=== PATIENT | female | born 1960 | race Caucasian/White ===

== ENCOUNTER 2017-08-23 13:46 | Emergency (ER) | payer OTHER ==
[~2017-08-23] VITALS: Ht 162.6 cm; Wt 69.8 kg
[~2017-08-23 13:46] MED LIST: Cleocin HCl300 MG PO; DOCU100 PO; Esgic Tablet1 EACH PO; Excedrin Extra1 EACH PO; GABA300T24 PO; IBUP800 PO; LORA1 PO; Norco 5-325 Ta1 EACH PO; OMEP40CA12 PO; OXYACE5T PO; PENICILLIN PO; PROP10; PROP10 PO; Prilosec20 MG PO; RXOXYACE PO; SUCR1 PO; Ultram50 MG PO; Zofran Odt4 MG SL
[2017-08-23] MEDS ORDERED: GABA300 PO (13:53)
[2017-08-23 14:15] LABS: BASOPHILS ABSOLUTE AUTO 0.03 K/mm3 (0.00-0.23); BASOPHILS PERCENT AUTO 1 % (0-2); EOSINOPHILS ABSOLUTE AUTO 0.03 K/mm3 (0.00-0.68); EOSINOPHILS PERCENT AUTO 1 % (0-6); Hematocrit 38.1 % (33.0-51.0); Hemoglobin 12.6 g/dL (11.5-16.0); IMMATURE GRAN ABSOLUTE AUTO 0.01 K/mm3 (0.00-0.10); IMMATURE GRAN PERCENT AUTO 0 % (0-1); LYMPHOCYTES PERCENT AUTO 32 % (21-46); MONOCYTES ABSOLUTE AUTO 0.31 K/mm3 (0.16-1.47); MONOCYTES PERCENT AUTO 6 % (4-13); Mean Corpuscular HGB 30.4 pg (26.0-34.0); Mean Corpuscular HGB Conc 33.1 g/dL (31.5-36.5); Mean Corpuscular Volume 92 fL (80-100); NEUTROPHILS ABSOLUTE AUTO 2.98 K/mm3 (1.96-9.15); NEUTROPHILS PERCENT AUTO 60 % (41-73); Platelet Count 237 K/mm3 (150-400); RDW Coefficient Variation 13.2 % (11.7-14.2); RDW Standard Deviation 44.3 fL (35.1-46.3); Red Blood Cell Count 4.14 M/mm3 (3.80-5.20); White Blood Cell Count 4.96 K/mm3 (4.00-11.30)
[2017-08-23 14:33] LABS: Alanine Aminotransfer (ALT/SGP 36 U/L (12-78); Albumin, Blood 3.5 g/dL (3.4-5.0); Alk Phos 53 U/L (50-136); Anion Gap 8 mmol/L (6-16); Aspartate Aminotrans (AST/SGOT 19 U/L (12-37); Bilirubin, Total 0.5 mg/dL (0.1-1.0); Blood Urea Nitrogen 12 mg/dL (8-24); Bun/Creatinine Ratio 15.3 (12.0-20.0); CO2, Blood 24 mmol/L (21-32); Calcium, Blood 8.7 mg/dL (8.5-10.1); Chloride, Blood 110 mmol/L (98-108); Creatinine, Blood 0.78 mg/dL (0.40-1.00); Globulin, Blood 3.6 g/dL (2.2-4.0); Glomerular Filtration Rate >60 (60-); Glucose, Blood 117 mg/dL (70-99); Potassium, Blood 3.6 mmol/L (3.5-5.5); Sodium, Blood 142 mmol/L (136-145); Total Protein, Blood 7.1 g/dL (6.4-8.2)
[2017-08-23] MEDS ORDERED: Lomotil Tablet1 EACH PO (15:26)
== END 2017-08-23 15:36 | disposition home or self-care (01) ==
LOC: ER 13:46
PROVIDERS: Emergency Medicine
DX: R19.7 Diarrhea, unspecified (principal); K64.8 Other hemorrhoids
CPT/HCPCS: 36415; 46600; 80053; 83690; 85025; 99284

== ENCOUNTER 2017-09-17 13:53 | Emergency (ER) | payer OTHER ==
[~2017-09-17] VITALS: Ht 162.6 cm; Wt 68.0 kg
[~2017-09-17 13:53] MED LIST changes: +GABA300 PO; +Lomotil Tablet1 EACH PO
== END 2017-09-17 15:43 | disposition home or self-care (01) ==
LOC: ER 13:53
DX: S93.401A Sprain of unspecified ligament of right ankle, initial encounter (principal); S80.01XA Contusion of right knee, initial encounter; W19.XXXA Unspecified fall, initial encounter
CPT/HCPCS: 73562-RT; 73610; 99283

== ENCOUNTER → 2017-12-24 | Outpatient (CLI) | payer OTHER ==
[~2017-12-24] MED LIST changes: +ACID REDUCER20 MG PO; +PROP80ER PO
== END ==
LOC: LAB 13:00 → LAB SHORT 13:00
DX: K44.9 Diaphragmatic hernia without obstruction or gangrene (principal); K57.90 Diverticulosis of intestine, part unspecified, without perforation or abscess without bleeding; K52.9 Noninfective gastroenteritis and colitis, unspecified; K92.1 Melena; K59.00 Constipation, unspecified; Z90.49 Acquired absence of other specified parts of digestive tract
CPT/HCPCS: 87015; 87045; 87046; 87177; 87205; 87209; 87899

== ENCOUNTER 2018-01-26 18:43 | Emergency (ER) | payer OTHER ==
[~2018-01-26] VITALS: Ht 162.6 cm; Wt 68.0 kg
[2018-01-26] MEDS ORDERED: CYCL10 PO (20:23)
[2018-01-26] MEDS ORDERED: Zofran Odt4 MG SL (20:23)
[2018-01-26] MEDS ORDERED: Norco 5-325 Ta1 EACH PO (20:23)
== END 2018-01-26 20:35 | disposition home or self-care (01) ==
LOC: ER 18:43
DX: S13.4XXA Sprain of ligaments of cervical spine, initial encounter (principal); G43.909 Migraine, unspecified, not intractable, without status migrainosus; Z79.899 Other long term (current) drug therapy; V49.9XXA Car occupant (driver) (passenger) injured in unspecified traffic accident, initial encounter
CPT/HCPCS: 72040; 72100; 96372; 99284-25; J1885

== ENCOUNTER 2019-09-12 03:59 | Emergency (ER) | payer OTHER ==
[~2019-09-12] VITALS: Ht 157.5 cm; Wt 70.3 kg
[~2019-09-12 03:59] MED LIST changes: +CYCL10 PO
[2019-09-12 04:46] LABS: BASOPHILS ABSOLUTE AUTO 0.02 K/mm3 (0.00-0.23); BASOPHILS PERCENT AUTO 0 % (0-2); EOSINOPHILS ABSOLUTE AUTO 0.08 K/mm3 (0.00-0.68); EOSINOPHILS PERCENT AUTO 2 % (0-6); Hematocrit 39.2 % (33.0-51.0); Hemoglobin 12.4 g/dL (11.5-16.0); IMMATURE GRAN ABSOLUTE AUTO 0.01 K/mm3 (0.00-0.10); IMMATURE GRAN PERCENT AUTO 0 % (0-1); LYMPHOCYTES PERCENT AUTO 40 % (21-46); MONOCYTES ABSOLUTE AUTO 0.48 K/mm3 (0.16-1.47); MONOCYTES PERCENT AUTO 9 % (4-13); Mean Corpuscular HGB 29.6 pg (26.0-34.0); Mean Corpuscular HGB Conc 31.6 g/dL (31.5-36.5); Mean Corpuscular Volume 94 fL (80-100); Mean Platelet Volume 9.7 fL (9.1-12.4); NEUTROPHILS ABSOLUTE AUTO 2.68 K/mm3 (1.96-9.15); NEUTROPHILS PERCENT AUTO 49 % (41-73); Platelet Count 224 K/mm3 (150-400); RDW Coefficient Variation 13.2 % (11.7-14.2); RDW Standard Deviation 45.3 fL (35.1-46.3); Red Blood Cell Count 4.19 M/mm3 (3.80-5.20); White Blood Cell Count 5.47 K/mm3 (4.00-11.30)
[2019-09-12 04:49] LABS: Alanine Aminotransfer (ALT/SGP 55 U/L (12-78); Albumin, Blood 3.4 g/dL (3.4-5.0); Albumin/Globulin Ratio 0.9 (0.8-1.8); Alk Phos 56 U/L (50-136); Anion Gap 5 mmol/L (6-16); Aspartate Aminotrans (AST/SGOT 30 U/L (12-37); Bilirubin, Total 0.3 mg/dL (0.1-1.0); Blood Urea Nitrogen 16 mg/dL (8-24); Bun/Creatinine Ratio 20.9 (12.0-20.0); CO2, Blood 28 mmol/L (21-32); Calcium, Blood 8.2 mg/dL (8.5-10.1); Chloride, Blood 110 mmol/L (98-108); Creatinine, Blood 0.77 mg/dL (0.40-1.00); Globulin, Blood 3.6 g/dL (2.2-4.0); Glomerular Filtration Rate >60 (60-); Glucose, Blood 110 mg/dL (70-99); Sodium, Blood 143 mmol/L (136-145)
== END 2019-09-12 06:46 | disposition home or self-care (01) ==
LOC: ER 03:59
PROVIDERS: Emergency Medicine
DX: K29.70 Gastritis, unspecified, without bleeding (principal); G43.909 Migraine, unspecified, not intractable, without status migrainosus; Z79.82 Long term (current) use of aspirin
CPT/HCPCS: 36415; 74018; 80053; 83690; 85025; 93005; 93010; 96374; 99284-25

== ENCOUNTER 2019-11-23 06:09 | Day surgery (SDC) | payer OTHER ==
[~2019-11-23] VITALS: Ht 162.6 cm; Wt 73.0 kg
[2019-11-23] MEDS ORDERED: METO50ER PO (07:14)
[2019-11-23] MEDS ORDERED: Nitrostat0.3 MG SL (07:16)
[2019-11-23] MEDS ORDERED: TRIDERM28.4 GM TOP (07:16)
--- NOTE | 2019-11-23 07:35 | NUR ---
DR RODRÍGUEZ AND DR HARTMAN IN ROOM.
--- NOTE | 2019-11-23 08:06 | NUR ---
PT TOLERATED JEREMIAS WELL; CALL LIGHT IN REACH.
--- NOTE | 2019-11-23 08:16 | NUR ---
ASSUMED CARE OF PT. RESTING. VITAL SIGNS STABLE. SEDATION SCORE 9.
--- NOTE | 2019-11-23 08:22 | NUR ---
NONREBREATHER REMOVED. OXYGEN NASAL CANNULA. PLACED AT 2L.
--- NOTE | 2019-11-23 08:26 | NUR ---
JOSEPH MCCORMACK TO RESUME CARE OF PT.
--- NOTE | 2019-11-23 08:31 | NUR ---
DR RODRÍGUEZ IN ROOM TO SEE PT.
--- NOTE | 2019-11-23 09:19 | NUR ---
DISCHARGE INSTRUCTIONS REVIEWED ALL QUESTIONS ANSWERED. 22 G IV DISCONTINUED FROM RIGHT FOREARM WITH INTACT CANNULA. PT DRANK SIPS OF WATER WITH NO ASPIRATION. PT ESCORTED OUT VIA WHEELCHAIR ESCORT.
== END 2019-11-23 22:41 | disposition home or self-care (01) ==
LOC: MHTC 06:09
DX: I08.1 Rheumatic disorders of both mitral and tricuspid valves (principal); I70.0 Atherosclerosis of aorta; I37.1 Nonrheumatic pulmonary valve insufficiency; K21.9 Gastro-esophageal reflux disease without esophagitis; E66.3 Overweight; D32.0 Benign neoplasm of cerebral meninges; Z68.27 Body mass index [BMI] 27.0-27.9, adult; Z79.899 Other long term (current) drug therapy
CPT/HCPCS: 93312; 93325; J2704; J7030

== ENCOUNTER → 2023-04-04 | Outpatient (CLI) | payer OTHER ==
[~2023-04-04] MED LIST changes: +METO50ER PO; +Nitrostat0.3 MG SL; +TRIDERM28.4 GM TOP
== END ==
LOC: LAB 13:29 → LAB SHORT 13:29
DX: N39.0 Urinary tract infection, site not specified (principal)
CPT/HCPCS: 87086

== ENCOUNTER → 2023-06-29 | Outpatient (CLI) | payer OTHER | LOC: LAB 14:27 → LAB SHORT 14:27 | DX: R30.0 Dysuria (principal); R31.9 Hematuria, unspecified | CPT/HCPCS: 87086 ==

== ENCOUNTER 2024-10-07 10:07 | Emergency (ER) | payer OTHER ==
[~2024-10-07] VITALS: Ht 157.5 cm; Wt 75.3 kg
[2024-10-07 11:12] LABS: BASOPHILS ABSOLUTE AUTO 0.03 K/mm3 (0.00-0.23); BASOPHILS PERCENT AUTO 1 % (0-2); EOSINOPHILS ABSOLUTE AUTO 0.08 K/mm3 (0.00-0.68); EOSINOPHILS PERCENT AUTO 1 % (0-6); Hematocrit 38.8 % (33.0-51.0); Hemoglobin 12.8 g/dL (11.5-16.0); IMMATURE GRAN ABSOLUTE AUTO 0.01 K/mm3 (0.00-0.10); IMMATURE GRAN PERCENT AUTO 0 % (0-1); LYMPHOCYTES ABSOLUTE AUTO 1.39 K/mm3 (0.84-5.20); LYMPHOCYTES PERCENT AUTO 24 % (21-46); MONOCYTES ABSOLUTE AUTO 0.42 K/mm3 (0.16-1.47); MONOCYTES PERCENT AUTO 7 % (4-13); Mean Corpuscular HGB Conc 33.0 g/dL (31.5-36.5); Mean Corpuscular Volume 93 fL (80-100); NEUTROPHILS ABSOLUTE AUTO 3.81 K/mm3 (1.96-9.15); NEUTROPHILS PERCENT AUTO 66 % (41-73); NRBC ABSOLUTE 0.00 K/mm3 (0.00-0.02); NRBC Auto 0.0 /100 WBC (0.0-0.2); Platelet Count 242 K/mm3 (150-400); RDW Coefficient Variation 13.9 % (11.7-14.2); RDW Standard Deviation 47.3 fL (35.1-46.3)
[2024-10-07 11:50] LABS: Alanine Aminotransfer (ALT/SGP 48.0 U/L (12-78); Albumin, Blood 3.6 g/dL (3.4-5.0); Albumin/Globulin Ratio 1.0 (0.8-1.8); Anion Gap 8.0 mmol/L (3-11); Aspartate Aminotrans (AST/SGOT 24.0 U/L (12-37); Bilirubin, Total 0.6 mg/dL (0.1-1.0); Blood Urea Nitrogen 17.0 mg/dL (8-24); CO2, Blood 25.0 mmol/L (21-32); Calcium, Blood 8.5 mg/dL (8.5-10.1); Chloride, Blood 109.0 mmol/L (98-108); Creatinine, Blood 0.73 mg/dL (0.40-1.00); Globulin, Blood 3.7 g/dL (2.2-4.0); Glucose, Blood 112.0 mg/dL (70-99); Potassium, Blood 4.4 mmol/L (3.5-5.5); Sodium, Blood 138.0 mmol/L (136-145); Total Protein, Blood 7.3 g/dL (6.4-8.2)
[2024-10-07 15:30] VITALS: BP 155/100
[2024-10-07] MEDS ORDERED: PROM25 PO (15:33)
== END 2024-10-07 15:45 | disposition home or self-care (01) ==
LOC: ER 10:07
PROVIDERS: Emergency Medicine
DX: H81.399 Other peripheral vertigo, unspecified ear (principal); Z79.82 Long term (current) use of aspirin; Z79.899 Other long term (current) drug therapy
CPT/HCPCS: 70450; 70551; 80053; 85025; 93005; 93010; 99284-25; A9270

== ENCOUNTER 2025-02-20 19:32 | Inpatient (IN) | payer OTHER ==
[~2025-02-20] VITALS: Ht 157.5 cm; Wt 75.3 kg
[~2025-02-20 19:32] MED LIST changes: +PROM25 PO
[2025-02-20] MEDS ORDERED: Morphine Sulfate 4 MG/1 ML Injection IV ONE (19:45)
[2025-02-20] MEDS ORDERED: Ondansetron HCl 2 MG / ML 2ML Vial IV ONE (19:45)
[2025-02-20 20:14] LABS: BASOPHILS ABSOLUTE AUTO 0.04 K/mm3 (0.00-0.23); BASOPHILS PERCENT AUTO 1 % (0-2); EOSINOPHILS ABSOLUTE AUTO 0.06 K/mm3 (0.00-0.68); EOSINOPHILS PERCENT AUTO 1 % (0-6); Hematocrit 36.9 % (33.0-51.0); Hemoglobin 12.1 g/dL (11.5-16.0); IMMATURE GRAN ABSOLUTE AUTO 0.03 K/mm3 (0.00-0.10); IMMATURE GRAN PERCENT AUTO 0 % (0-1); LYMPHOCYTES ABSOLUTE AUTO 1.92 K/mm3 (0.84-5.20); LYMPHOCYTES PERCENT AUTO 26 % (21-46); MONOCYTES ABSOLUTE AUTO 0.57 K/mm3 (0.16-1.47); MONOCYTES PERCENT AUTO 8 % (4-13); Mean Corpuscular HGB Conc 32.8 g/dL (31.5-36.5); Mean Corpuscular Volume 95 fL (80-100); NEUTROPHILS ABSOLUTE AUTO 4.71 K/mm3 (1.96-9.15); NEUTROPHILS PERCENT AUTO 64 % (41-73); NRBC ABSOLUTE 0.00 K/mm3 (0.00-0.02); NRBC Auto 0.0 /100 WBC (0.0-0.2); Platelet Count 229 K/mm3 (150-400); RDW Coefficient Variation 14.2 % (11.7-14.2); RDW Standard Deviation 49.1 fL (35.1-46.3)
[2025-02-20 20:35] LABS: Alanine Aminotransfer (ALT/SGP 35.0 U/L (12-78); Albumin, Blood 3.1 g/dL (3.4-5.0); Albumin/Globulin Ratio 0.9 (0.8-1.8); Anion Gap 8.0 mmol/L (3-11); Aspartate Aminotrans (AST/SGOT 20.0 U/L (12-37); Bilirubin, Total 0.6 mg/dL (0.1-1.0); Blood Urea Nitrogen 19.0 mg/dL (8-24); CO2, Blood 26.0 mmol/L (21-32); Calcium, Blood 8.3 mg/dL (8.5-10.1); Chloride, Blood 107.0 mmol/L (98-108); Creatinine, Blood 0.78 mg/dL (0.40-1.00); Globulin, Blood 3.4 g/dL (2.2-4.0); Glucose, Blood 114.0 mg/dL (70-99); Magnesium, Blood 2.3 mg/dL (1.6-2.4); Potassium, Blood 3.5 mmol/L (3.5-5.5); Sodium, Blood 137.0 mmol/L (136-145); Total Protein, Blood 6.5 g/dL (6.4-8.2)
[2025-02-20] MEDS ORDERED: HYDROmorphone HCl/Pf 1MG SYR IV ONE ×2 (20:45→22:15)
[2025-02-20 23:53] LABS: Source, Urine Clean Catch
[2025-02-20 23:56] LABS: Bilirubin, Urine Neg (Neg); Glucose Qualitative, Urine Neg (Neg); Ketones, Urine Neg (Neg); Leukocyte Esterase, Urine 3+ (Neg); Protein, Urine 2+ (Neg); Specific Gravity, Urine 1.015 (1.003-1.022); Urobilinogen, Urine NORM (Normal)
[2025-02-20 23:58] LABS: Color, Urine Yellow (P-Yellow)
[2025-02-21 00:11] LABS: White Blood Cells, Urine 25-50 /hpf (0-5)
[2025-02-21] MEDS ORDERED: CefTRIAXone Sodium 1,000 MG in NS 100 ML IV ONE (00:20)
[2025-02-21] MEDS ORDERED: Lidocaine 4% 1 Patch TOP PRN (01:45)
[2025-02-21] MEDS ORDERED: FLU VACC TS2025-26(6MOS UP)/PF 45 MCG/0.5 ML SYRINGE IM SCH (01:50)
[2025-02-21] MEDS ORDERED: NS 1,000 ML IV SCH (02:00)
[2025-02-21] MEDS ORDERED: CHOLESTYRAMI239.4 G1 PO (02:04)
[2025-02-21] MEDS ORDERED: OXYC5 PO (02:05)
[2025-02-21] MEDS ORDERED: Ketorolac Tromethamine 15mg Vial IV PRN (02:25)
[2025-02-21 03:15] VITALS: BP 130/81
[2025-02-21] MEDS ORDERED: OxyCODONE 10/Acetamin 325 TABLET PO PRN (03:30)
[2025-02-21] MEDS ORDERED: Naloxone HCl 0.4MG / ML 1ML Vial IV PRN (03:30)
[2025-02-21] MEDS ORDERED: HYDROmorphone HCl/Pf 1MG SYR IV PRN (03:30)
[2025-02-21] MEDS ORDERED: Acetaminophen/Aspirin/Caffeine 250/250/65 MG PO ONE (03:40)
[2025-02-21] MEDS ORDERED: Ondansetron HCl 2 MG / ML 2ML Vial IV PRN (03:50)
--- NOTE | 2025-02-21 06:05 | NUR ---
SHIFT SUMMARY PATIENT ARRIVED EARLIER IN THE MORNING, HAS NEEDED SUBSTANTIAL AMOUNTS OF MEDS PER EMAR, ALTHOUGH PATIENT IS NOW RESTING COMFORTABLY, WITH PULSE OX ON, NAUSEA SUBSIDED WITH MEDS PER EMAR, BED AT LOWEST LEVEL, STBA DUE TO HEAVY OPIODS. WILL NEED A BALING MACHINE OPERATOR, SAUDI AR[place]IAN IS [place] [employer]. ABLE TO USE CALL LIGHT, BED AT LOWEST LEVEL, CALL LIGHT WITHIN REACH.
[2025-02-21 06:30] LABS: Alanine Aminotransfer (ALT/SGP 31.0 U/L (12-78); Albumin, Blood 3.1 g/dL (3.4-5.0); Albumin/Globulin Ratio 1.0 (0.8-1.8); Anion Gap 10.0 mmol/L (3-11); Aspartate Aminotrans (AST/SGOT 17.0 U/L (12-37); Bilirubin, Total 0.5 mg/dL (0.1-1.0); Blood Urea Nitrogen 19.0 mg/dL (8-24); CO2, Blood 25.0 mmol/L (21-32); Calcium, Blood 8.0 mg/dL (8.5-10.1); Chloride, Blood 106.0 mmol/L (98-108); Creatinine, Blood 1.08 mg/dL (0.40-1.00); Globulin, Blood 3.2 g/dL (2.2-4.0); Glucose, Blood 111.0 mg/dL (70-99); Potassium, Blood 3.8 mmol/L (3.5-5.5); Sodium, Blood 137.0 mmol/L (136-145); Total Protein, Blood 6.3 g/dL (6.4-8.2)
[2025-02-21 07:24] LABS: BASOPHILS ABSOLUTE AUTO 0.01 K/mm3 (0.00-0.23); BASOPHILS PERCENT AUTO 0 % (0-2); EOSINOPHILS ABSOLUTE AUTO 0.05 K/mm3 (0.00-0.68); EOSINOPHILS PERCENT AUTO 1 % (0-6); Hematocrit 33.3 % (33.0-51.0); Hemoglobin 10.4 g/dL (11.5-16.0); IMMATURE GRAN ABSOLUTE AUTO 0.03 K/mm3 (0.00-0.10); IMMATURE GRAN PERCENT AUTO 0 % (0-1); LYMPHOCYTES ABSOLUTE AUTO 1.36 K/mm3 (0.84-5.20); LYMPHOCYTES PERCENT AUTO 20 % (21-46); MONOCYTES ABSOLUTE AUTO 0.59 K/mm3 (0.16-1.47); MONOCYTES PERCENT AUTO 9 % (4-13); Mean Corpuscular HGB Conc 31.2 g/dL (31.5-36.5); Mean Corpuscular Volume 98 fL (80-100); NEUTROPHILS ABSOLUTE AUTO 4.66 K/mm3 (1.96-9.15); NEUTROPHILS PERCENT AUTO 70 % (41-73); NRBC ABSOLUTE 0.00 K/mm3 (0.00-0.02); NRBC Auto 0.0 /100 WBC (0.0-0.2); Platelet Count 178 K/mm3 (150-400); RDW Coefficient Variation 14.2 % (11.7-14.2); RDW Standard Deviation 51.4 fL (35.1-46.3)
[2025-02-21 07:55] VITALS: BP 98/66
[2025-02-21] MEDS ORDERED: Enoxaparin 40 MG/0.4 ML SYR SC SCH (09:00)
--- NOTE | 2025-02-21 16:05 | NUR ---
DAY SHIFT SUMMARY: PATIENT MEDICATED FOR FLANK PAIN PER EMAR c GOOD EFFECT. PATIENT DENIES N/V, DIZZINESS, CP/PRESSURE AND SOB. 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 PATIENT HAS GOOD APPETITE, CONTINENT OF BLADDER AND AMBULATES TO BATHROOM/BACK IN BED c SBA. PATIENT HAS ACTIVE BT, REPORTS ABDOMINAL DISTENTION/GAS PAIN, MEDICATED c SIMETHICONE PER ORDER c NO RELIEF. DR. WHALEY IS AWARE. PATIENT AMBULATED AROUND THE UNIT X2 c SBA. PATIENT HAD SHOWER/LINEN CHANGED TODAY. PATIENT HAS PIV TO L HAND INFUSING NS AT 200 MLS/HR. VITAL SIGNS REVIEWED. PATIENT RECEIVED SCHEDULED MEDS PER EMAR. PATIENT A/OX4, PLEASANT AND COOPERATIVE c CARE, CALLS APPROPRIATELY AND MAKE NEEDS KNOWN. BED IN LOWEST POSITION. CALL LIGHT IN REACH.
[2025-02-21 16:15] VITALS: BP 119/74
--- NOTE | 2025-02-21 18:04 | NUR ---
ADDITIONAL DAY SHIFT NOTE: PATIENT URINE HAS BEEN STRAINED TO CHECK FOR STONES; SO FAR, NO STONES HAVE BEEN NOTED THIS SHIFT.
[2025-02-21 20:18] VITALS: BP 123/75
[2025-02-21] MEDS ORDERED: CefTRIAXone Sodium 1,000 MG in NS 100 ML IV SCH (21:00)
--- NOTE | 2025-02-22 03:57 | NUR ---
UROLOGIST DR MEANS CALLED FOR UPDATE ON PT PAIN AND IF PT HAD PASSED ANY KIDNEY STONES YET, AND IF URINE STRAIN ORDER WAS IN PLACE. NOTIFIED THAT URINE STRAIN ORDER IS IN PLACE AND THAT NO KIDNEY STONES HAVE BEED PASSED YET, AND THAT ONLY PAIN PT REPORTED WAS HEADACHE.
[2025-02-22 04:08] VITALS: BP 128/71
--- NOTE | 2025-02-22 05:14 | NUR ---
SHIFT SUMMARY NOC: PT A&Ox4, COOPERATIVE, USES CALL LIGHT APPROPRIATELY, AND AMBULATES INDEPENDENTLY TO/FROM BR. PT HAD SOME COMPLAINTS OF BURNING PAIN/DISCOMFORT AT HER LEFT HAND IV SITE. I INSPECTED THE SITE AND FOUND THE DRESSING ADHESIVE TO BE LOOSE AND REPLACED IT WITH A NEW TEGADERM TRANSPARENT DRESSING. THE IV HUB LATER BECAME OBSTRUCTED BY CLOTTED BLOOD AND WAS DISCONTINUED. A NEW IV WAS PLACED IN THE RIGHT AC AT 0330 AND IS CURRENTLY INTACT AND FLUSHES WELL. PATIENT WAS TREATED PER EMAR FOR LEFT FLANK PAIN AND NAUSEA TWICE THIS SHIFT. SHE PREFERS THE DOOR CLOSED TO RETAIN WARMTH IN THE ROOM. PT IS CURRENTLY RESTING WITH HOB ELEVATED, BED IN LOWEST POSITION AND CALL LIGHT WITHIN REACH. NO ACUTE EVENTS THIS SHIFT.
[2025-02-22 07:30] VITALS: BP 131/77
[2025-02-22] MEDS ORDERED: Acetaminophen/Aspirin/Caffeine 250/250/65 MG PO PRN (07:45)
--- NOTE | 2025-02-22 11:00 | NUR ---
1040- VERBAL FROM MD MARLEY TO DECREASE FLUIDS TO NS AT 100ML/HR AND THEN DC FLUIDS ONCECURRENT BAG IS EMPTY.
[2025-02-22 12:18] LABS: Hematocrit 32.2 % (33.0-51.0); Hemoglobin 10.0 g/dL (11.5-16.0); Mean Corpuscular HGB Conc 31.1 g/dL (31.5-36.5); Mean Corpuscular Volume 100 fL (80-100); NRBC ABSOLUTE 0.00 K/mm3 (0.00-0.02); NRBC Auto 0.0 /100 WBC (0.0-0.2); Platelet Count 167 K/mm3 (150-400); RDW Coefficient Variation 14.4 % (11.7-14.2); RDW Standard Deviation 52.8 fL (35.1-46.3)
[2025-02-22 14:00] LABS: Anion Gap 9.0 mmol/L (3-11); Blood Urea Nitrogen 11.0 mg/dL (8-24); CO2, Blood 22.0 mmol/L (21-32); Calcium, Blood 7.8 mg/dL (8.5-10.1); Chloride, Blood 114.0 mmol/L (98-108); Creatinine, Blood 0.84 mg/dL (0.40-1.00); Glucose, Blood 102.0 mg/dL (70-99); Potassium, Blood 4.4 mmol/L (3.5-5.5); Sodium, Blood 141.0 mmol/L (136-145)
[2025-02-22 16:39] VITALS: BP 143/88
--- NOTE | 2025-02-22 17:45 | NUR ---
SUMMARY- AAOX4. SBA. PAIN WELL CONTROLLED WITH EMAR PAIN MEDS. PT DID NOT PASS STONE THIS SHIFT DESPITE STRAINING URINE. NO ACUTE EVENTS THIS SHIFT.
[2025-02-22 19:50] VITALS: BP 145/92
[2025-02-23 05:55] VITALS: BP 164/106
[2025-02-23 05:57] VITALS: BP 187/114
[2025-02-23 06:05] VITALS: BP 158/94
[2025-02-23 07:26] VITALS: BP 149/89
[2025-02-23] MEDS ORDERED: CEPH500 PO (10:49)
--- NOTE | 2025-02-23 11:25 | NUR ---
DISCHARGE NOTE: PT DISCHARGED HOME VIA WHEELCHAIR BY [facility] TECHNICIAN- TO TRANSPORT. ALL DISCHARGE INSTRUCTIONS PROVIDED BY JEISON BELTRAN. PRESCRIPTIONS FAXED TO [facility] AND HARD SCRIPT GIVEN TO PATIENT. ORDER FOR FOLLOW UP WITH PCP AND REFFERAL ON DC PAPERWORK. PT ALERT AND ORIENTED DENIES PAIN AND ON RA.
== END 2025-02-23 12:15 | disposition home or self-care (01) | DRG 690 ==
LOC: ER 19:32 → MEDS 19:33 → ENPENDDIS 02-23 09:56 → MEDS 02-23 12:15
PROVIDERS: Emergency Medicine; Internal Medicine; ADMIT Student in an Organized Health Care Education/Training Program
DX: N13.6 Pyonephrosis (principal); G89.29 Other chronic pain; M54.9 Dorsalgia, unspecified; R05.3 Chronic cough; R51.9 Headache, unspecified; I10 Essential (primary) hypertension; R61 Generalized hyperhidrosis; K52.9 Noninfective gastroenteritis and colitis, unspecified; Z79.82 Long term (current) use of aspirin
CPT/HCPCS: 36415; 74177; 80048; 80053; 81001; 83690; 83735; 85025; 85027; 87086; 94762; 96361; 96365; 96366; 96372; 96375; 96376; 99285-25; A9270; G0378; J0696; J1171; J1650; J1885; J2270; J2405; J7030; Q9967